=== PATIENT | female | born 1970 | race Caucasian/White ===

== ENCOUNTER → 2019-05-16 | Day surgery (SDC) | payer OTHER | END | disposition home or self-care (01) | LOC: SDC 13:00 | DX: M17.0 Bilateral primary osteoarthritis of knee (principal); F41.9 Anxiety disorder, unspecified; F32.9 Major depressive disorder, single episode, unspecified; E03.9 Hypothyroidism, unspecified; I10 Essential (primary) hypertension; Z88.1 Allergy status to other antibiotic agents; Z98.890 Other specified postprocedural states; Z82.49 Family history of ischemic heart disease and other diseases of the circulatory system; Z83.3 Family history of diabetes mellitus ==

== ENCOUNTER → 2020-04-15 | Outpatient (CLI) | payer OTHER, MEDICAID ==
[2020-04-15 15:37] LABS: BASO # 0.1 10*3/uL (0.0-0.1); BASO % 0.7 % (0.0-1.0); EOS # 0.2 10*3/uL (0.0-0.4); EOS % 2.1 % (1.0-4.0); HEMATOCRIT 38.8 % (37.0-47.0); LYMPH # 1.8 10*3/uL (1.3-4.4); LYMPH % 17.6 % (27.0-41.0); MEAN CELL VOLUME 88.6 fl (81.0-99.0); MEAN CORPUSCULAR HGB 25.8 pg (27.0-31.0); MEAN CORPUSCULAR HGB CONC 29.1 g/dl (33.0-37.0); MEAN PLATELET VOLUME 10.1 fl (9.6-12.3); MONO # 0.8 10*3/uL (0.1-1.0); MONO % 7.5 % (3.0-9.0); NEUT # 7.2 10*3/uL (2.3-7.9); NEUT % 71.7 % (47.0-73.0); PLATELET COUNT AUTOMATED 314 10*3/uL (130-400); RED BLOOD COUNT 4.38 10*6/uL (4.10-5.10); RED CELL DISTRI WIDTH 15.5 % (0-14.5)
[2020-04-15 16:16] LABS: ALKALINE PHOSPHATASE 58 U/L (45-117); BUN 25 mg/dl (7-24); CHLORIDE 105 mmol/L (98-107); CHOLESTEROL 136 mg/dL (<200); CREATININE 0.55 mg/dL (0.55-1.02); HDL CHOLESTEROL 44 mg/dl (40-60); LDL CHOLESTEROL 81 mg/dL (9-159); POTASSIUM 4.3 mmol/L (3.5-5.1); SGOT/AST 6 IU/L (3-35); SGPT/ALT 16 U/L (12-78); SODIUM 140 mmol/L (136-145); TOTAL PROTEIN 7.6 gm/dL (6.4-8.2); TRIGLYCERIDES 55 mg/dl (<150); VLDL CHOLESTEROL 11 mg/dL (6-40)
[2020-04-15 16:41] LABS: FREE T4 1.18 ng/dl (0.76-1.46)
[2020-04-15 16:45] LABS: BILIRUBIN NEGATIVE (NEGATIVE); BLOOD 3+ (NEGATIVE); CLARITY CLOUDY (CLEAR); COLOR YELLOW (YELLOW); GLUCOSE NEGATIVE (NEGATIVE); KETONE NEGATIVE (NEGATIVE); LEUKO ESTERASE TRACE (NEGATIVE); NITRITE NEGATIVE (NEGATIVE); SPECIFIC GRAVITY 1.025 (1.005-1.030)
[2020-04-15 16:49] LABS: BACTERIA 2+; MUCOUS 1+; RBC TNTC rbc/hpf (0-2); WBC 21-30 wbc/hpf (0-5)
== END | disposition home or self-care (01) ==
LOC: LAB 15:01
PROVIDERS: Family Medicine
DX: E03.9 Hypothyroidism, unspecified (principal); E66.01 Morbid (severe) obesity due to excess calories; E78.00 Pure hypercholesterolemia, unspecified; I10 Essential (primary) hypertension

== ENCOUNTER → 2020-05-20 | Outpatient (CLI) | payer OTHER, MEDICAID ==
[2020-05-20 17:06] LABS: BASO # 0.1 10*3/uL (0.0-0.1); BASO % 0.5 % (0.0-1.0); EOS # 0.2 10*3/uL (0.0-0.4); EOS % 1.7 % (1.0-4.0); HEMATOCRIT 35.8 % (37.0-47.0); LYMPH # 1.6 10*3/uL (1.3-4.4); LYMPH % 14.7 % (27.0-41.0); MEAN CELL VOLUME 88.4 fl (81.0-99.0); MEAN CORPUSCULAR HGB 25.4 pg (27.0-31.0); MEAN CORPUSCULAR HGB CONC 28.8 g/dl (33.0-37.0); MONO # 0.7 10*3/uL (0.1-1.0); MONO % 6.1 % (3.0-9.0); NEUT # 8.4 10*3/uL (2.3-7.9); NEUT % 76.5 % (47.0-73.0); PLATELET COUNT AUTOMATED 347 10*3/uL (130-400); RED BLOOD COUNT 4.05 10*6/uL (4.10-5.10); RED CELL DISTRI WIDTH 15.3 % (0-14.5); WHITE BLOOD COUNT 10.9 10*3/uL (4.8-10.8)
== END | disposition home or self-care (01) ==
LOC: LAB 16:30
PROVIDERS: ATTEND Family Medicine
DX: E03.9 Hypothyroidism, unspecified (principal); N92.0 Excessive and frequent menstruation with regular cycle

== ENCOUNTER → 2020-09-23 | Outpatient (CLI) | payer OTHER, MEDICAID | END | disposition home or self-care (01) | LOC: WOUNDCARE 00:32 → EDSTATUS 12:24 → WOUNDCARE 12:26 | PROVIDERS: ATTEND Nurse Practitioner | DX: L89.892 Pressure ulcer of other site, stage 2 (principal); L98.491 Non-pressure chronic ulcer of skin of other sites limited to breakdown of skin; E66.01 Morbid (severe) obesity due to excess calories; I10 Essential (primary) hypertension; E78.00 Pure hypercholesterolemia, unspecified; G47.30 Sleep apnea, unspecified; J96.90 Respiratory failure, unspecified, unspecified whether with hypoxia or hypercapnia ==

== ENCOUNTER 2023-09-07 20:46 | Emergency (ER) | payer MEDICAID ==
[~2023-09-07] VITALS: Ht 160 cm; Wt 196.9 kg
[2023-09-07 21:39] LABS: BASO # 0.1 10*3/uL (0.0-0.1); BASO % 0.4 % (0.0-1.0); EOS # 0.2 10*3/uL (0.0-0.4); HEMATOCRIT 37.5 % (37.0-47.0); LYMPH # 1.2 10*3/uL (1.3-4.4); LYMPH % 10.3 % (27.0-41.0); MEAN CELL VOLUME 88.7 fl (81.0-99.0); MEAN CORPUSCULAR HGB 25.5 pg (27.0-31.0); MEAN CORPUSCULAR HGB CONC 28.8 g/dl (33.0-37.0); MEAN PLATELET VOLUME 10.7 fl (9.6-12.3); PLATELET COUNT AUTOMATED 324 10*3/uL (130-400); RED BLOOD COUNT 4.23 10*6/uL (4.10-5.10); RED CELL DISTRI WIDTH 16.4 % (0-14.5); WHITE BLOOD COUNT 11.6 10*3/uL (4.8-10.8)
[2023-09-07 21:57] LABS: ALKALINE PHOSPHATASE 54 U/L (46-116); BUN 13 mg/dl (9-23); CHLORIDE 104 mmol/L (98-107); LIPASE 23 U/L (12-53); POTASSIUM 4.1 mmol/L (3.4-5.1); SGPT/ALT 13 U/L (5-49); TOTAL PROTEIN 6.9 gm/dL (6.0-8.0)
[2023-09-08] MEDS ORDERED: VIBRAMYCIN100 MG PO (01:11)
[2023-09-08] MEDS ORDERED: PREDNISONE20 M1 PO (01:11)
== END 2023-09-08 01:34 | disposition home or self-care (01) ==
LOC: ED 20:46
PROVIDERS: Internal Medicine
DX: J44.1 Chronic obstructive pulmonary disease with (acute) exacerbation (principal); Z88.1 Allergy status to other antibiotic agents; Z20.822 Contact with and (suspected) exposure to COVID-19

== ENCOUNTER 2023-10-16 02:53 | Emergency (ER) | payer MEDICAID ==
[~2023-10-16] VITALS: Ht 160 cm; Wt 156.5 kg
[~2023-10-16 02:53] MED LIST: PREDNISONE20 M1 PO; VIBRAMYCIN100 MG PO
[2023-10-16 04:01] LABS: BASO # 0.1 10*3/uL (0.0-0.1); BASO % 0.4 % (0.0-1.0); EOS # 0.1 10*3/uL (0.0-0.4); EOS % 0.9 % (1.0-4.0); HEMATOCRIT 40.3 % (37.0-47.0); LYMPH # 1.7 10*3/uL (1.3-4.4); LYMPH % 11.6 % (27.0-41.0); MEAN CELL VOLUME 85.4 fl (81.0-99.0); MEAN CORPUSCULAR HGB 24.6 pg (27.0-31.0); MEAN CORPUSCULAR HGB CONC 28.8 g/dl (33.0-37.0); MEAN PLATELET VOLUME 10.6 fl (9.6-12.3); MONO % 6.9 % (3.0-9.0); NEUT # 11.4 10*3/uL (2.3-7.9); NEUT % 79.2 % (47.0-73.0); PLATELET COUNT AUTOMATED 379 10*3/uL (130-400); RED BLOOD COUNT 4.72 10*6/uL (4.10-5.10); RED CELL DISTRI WIDTH 16.4 % (0-14.5); WHITE BLOOD COUNT 14.4 10*3/uL (4.8-10.8)
[2023-10-16 04:13] LABS: ACT PARTIAL THROMBO TIME 26.2 SECONDS (20.0-32.1)
[2023-10-16 04:25] LABS: ALKALINE PHOSPHATASE 50 U/L (46-116); BUN 21 mg/dl (9-23); CHLORIDE 104 mmol/L (98-107); LIPASE 24 U/L (12-53); POTASSIUM 3.8 mmol/L (3.4-5.1); SGPT/ALT 14 U/L (5-49); TOTAL PROTEIN 7.3 gm/dL (6.0-8.0)
== END 2023-10-16 07:53 | disposition short-term general hospital (02) ==
LOC: ED 02:53
PROVIDERS: Internal Medicine
DX: K56.609 Unspecified intestinal obstruction, unspecified as to partial versus complete obstruction (principal); K46.9 Unspecified abdominal hernia without obstruction or gangrene; R11.2 Nausea with vomiting, unspecified; Z88.1 Allergy status to other antibiotic agents; Z79.2 Long term (current) use of antibiotics; Z79.899 Other long term (current) drug therapy

== ENCOUNTER → 2024-12-05 | Outpatient (CLI) | payer MEDICAID ==
[~2024-12-05] MED LIST changes: +ACETAMINOPHEN325 M2 PO; +ASPIRIN ADULT L81 M2 PO; +B-121000 MCG PO; +BUPROPION HYDR150 M3 PO; +CLOPIDOGREL75 MG PO; +DICLOFENAC SODI50 GM T; +FLUVOXAMINE100 MG PO; +HYDROXYZINE HCL25 MG PO; +IRON325 M1 PO; +LEVOTHYROXINE112 MCG PO; +METFORMIN HYDR500 MG PO; +PEG3350238 GM PO; +ROSUVASTATIN CA10 MG PO; +ROSUVASTATIN CA20 MG PO; +TRAZODONE50 MG PO; +TRULICITY0.75 MG/0. SC
[2024-12-05 15:44] LABS: BASO # 0.1 10*3/uL (0.0-0.1); BASO % 0.8 % (0.0-1.0); EOS # 0.2 10*3/uL (0.0-0.4); EOS % 1.7 % (1.0-4.0); HEMATOCRIT 40.5 % (37.0-47.0); MEAN CELL VOLUME 88.8 fl (81.0-99.0); MEAN CORPUSCULAR HGB 25.9 pg (27.0-31.0); MEAN CORPUSCULAR HGB CONC 29.1 g/dl (33.0-37.0); MEAN PLATELET VOLUME 10.5 fl (9.6-12.3); MONO # 0.7 10*3/uL (0.1-1.0); MONO % 6.9 % (3.0-9.0); NEUT # 7.8 10*3/uL (2.3-7.9); NEUT % 75.5 % (47.0-73.0); PLATELET COUNT AUTOMATED 304 10*3/uL (130-400); RED BLOOD COUNT 4.56 10*6/uL (4.10-5.10); RED CELL DISTRI WIDTH 15.3 % (0-14.5); WHITE BLOOD COUNT 10.4 10*3/uL (4.8-10.8)
[2024-12-05 16:10] LABS: ALKALINE PHOSPHATASE 66 U/L (46-116); BUN 19 mg/dl (9-23); CHLORIDE 103 mmol/L (98-107); CHOLESTEROL 177 mg/dL (<200); LDL CHOLESTEROL 121 mg/dL (9-159); POTASSIUM 4.7 mmol/L (3.4-5.1); SGPT/ALT 13 U/L (5-49); TOTAL PROTEIN 7.2 gm/dL (6.0-8.0); TRIGLYCERIDES 76 mg/dl (<150)
== END | disposition home or self-care (01) ==
LOC: LAB 14:52
PROVIDERS: ATTEND Family Medicine
DX: I10 Essential (primary) hypertension (principal); E78.5 Hyperlipidemia, unspecified; E55.9 Vitamin D deficiency, unspecified

== ENCOUNTER 2025-05-30 18:05 | Inpatient (IN) | payer MEDICAID ==
[~2025-05-30] VITALS: Ht 160 cm; Wt 201.8 kg
[2025-05-30 09:20] VITALS: BP 182/96
[~2025-05-30 18:05] MED LIST changes: +JARDIANCE10 MG PO; +OMNICEF300 MG PO
[2025-05-30 18:57] VITALS: BP 159/101
[2025-05-30] MEDS ORDERED: SODIUM CHLORIDE 0.9% 1,000 ML IV ONE (19:50)
[2025-05-30 20:06] LABS: BASO # 0.1 10*3/uL (0.0-0.1); BASO % 0.4 % (0.0-1.0); EOS # 0.3 10*3/uL (0.0-0.4); EOS % 2.3 % (1.0-4.0); MEAN CELL VOLUME 90.3 fl (81.0-99.0); MEAN CORPUSCULAR HGB 26.4 pg (27.0-31.0); MEAN PLATELET VOLUME 10.8 fl (9.6-12.3); MONO # 1.1 10*3/uL (0.1-1.0); MONO % 7.7 % (3.0-9.0); NEUT # 10.2 10*3/uL (2.3-7.9); NEUT % 72.3 % (47.0-73.0); NUCLEATED RED BLOOD CELL 0.0 % (0.0-0.0); NUCLEATED RED BLOOD CELL 0.0 10*3/uL (0.0-0.0); PLATELET COUNT AUTOMATED 342 10*3/uL (130-400); RED CELL DISTRI WIDTH 16.1 % (0-14.5)
[2025-05-30 20:27] LABS: BUN 18 mg/dl (9-23)
[2025-05-30] MEDS ORDERED: Ondansetron Hydrochloride 4 MG/2 ML VIAL IV PRN (22:45)
[2025-05-30] MEDS ORDERED: BISACODYL 5 MG TAB PO PRN (22:45)
[2025-05-30] MEDS ORDERED: ACETAMINOPHEN 650 MG SUPP R PRN (22:45)
[2025-05-30] MEDS ORDERED: Acetaminophen/Hydrocodone 5 MG/325 MG TABLET PO PRN (22:45)
[2025-05-30] MEDS ORDERED: ACETAMINOPHEN 325 MG TAB PO PRN (22:45)
[2025-05-30] MEDS ORDERED: TEMAZEPAM 15 MG CAP PO PRN (22:45)
[2025-05-30] MEDS ORDERED: BISACODYL 10 MG SUPP R PRN (22:45)
[2025-05-30] MEDS ORDERED: HYDROXYZINE HCL25 MG PO (22:49)
[2025-05-30] MEDS ORDERED: DEXTROSE 50% 25 GM/50 ML VIAL IV PRN (23:05)
[2025-05-31] VITALS (7 sets, daily range): BP systolic 75–182; BP diastolic 35–96
[2025-05-31 06:11] LABS: BUN 17 mg/dl (9-23); SGPT/ALT 14 U/L (5-49)
[2025-05-31 06:28] LABS: BASO # 0.1 10*3/uL (0.0-0.1); BASO % 0.6 % (0.0-1.0); EOS # 0.3 10*3/uL (0.0-0.4); EOS % 2.9 % (1.0-4.0); MEAN CELL VOLUME 90.9 fl (81.0-99.0); MEAN CORPUSCULAR HGB 26.4 pg (27.0-31.0); MEAN PLATELET VOLUME 11.6 fl (9.6-12.3); MONO # 0.6 10*3/uL (0.1-1.0); MONO % 7.3 % (3.0-9.0); NEUT # 6.2 10*3/uL (2.3-7.9); NEUT % 70.9 % (47.0-73.0); NUCLEATED RED BLOOD CELL 0.0 % (0.0-0.0); NUCLEATED RED BLOOD CELL 0.0 10*3/uL (0.0-0.0); PLATELET COUNT AUTOMATED 271 10*3/uL (130-400); RED CELL DISTRI WIDTH 16.2 % (0-14.5)
[2025-05-31 06:29] LABS: ACT PARTIAL THROMBO TIME 27.2 SECONDS (20.0-32.1)
[2025-05-31] MEDS ORDERED: INSULIN LISPRO 1 UNIT/0.01 ML SQ SCH (07:30)
[2025-05-31] MEDS ORDERED: TRULICITY1.5 MG/0.5 SC (08:16)
[2025-05-31] MEDS ORDERED: ASPIRIN ENTERIC COATED 81 MG TAB PO SCH (10:00)
[2025-05-31] MEDS ORDERED: Menthol/Zinc Oxide 4 GM THIN T SCH (22:00)
[2025-05-31] MEDS ORDERED: ATORVASTATIN CALCIUM 20 MG TAB PO SCH (22:00)
[2025-05-31] MEDS ORDERED: NYSTATIN 15 GM BOT T SCH (22:00)
[2025-06-01] VITALS: BP 132/68
[2025-06-01 05:24] LABS: BUN 15 mg/dl (9-23)
[2025-06-01 06:30] LABS: BASO # 0.0 10*3/uL (0.0-0.1); BASO % 0.5 % (0.0-1.0); EOS # 0.3 10*3/uL (0.0-0.4); EOS % 3.3 % (1.0-4.0); MEAN CELL VOLUME 91.2 fl (81.0-99.0); MEAN CORPUSCULAR HGB 26.2 pg (27.0-31.0); MEAN PLATELET VOLUME 11.2 fl (9.6-12.3); MONO # 0.7 10*3/uL (0.1-1.0); MONO % 8.3 % (3.0-9.0); NEUT # 5.2 10*3/uL (2.3-7.9); NEUT % 65.9 % (47.0-73.0); NUCLEATED RED BLOOD CELL 0.0 % (0.0-0.0); NUCLEATED RED BLOOD CELL 0.0 10*3/uL (0.0-0.0); PLATELET COUNT AUTOMATED 267 10*3/uL (130-400); RED CELL DISTRI WIDTH 16.0 % (0-14.5)
[2025-06-01 08:00] VITALS: BP 146/74
[2025-06-01 12:00] VITALS: BP 112/51
[2025-06-01] MEDS ORDERED: Phenazopyridine Hydrochlorid2 100 MG TAB PO SCH (14:00)
[2025-06-01 16:00] VITALS: BP 145/53
[2025-06-01 20:00] VITALS: BP 152/84
[2025-06-02] VITALS: BP 151/73
[2025-06-02 05:15] LABS: BUN 13 mg/dl (9-23)
[2025-06-02 06:36] LABS: BASO # 0.1 10*3/uL (0.0-0.1); BASO % 0.6 % (0.0-1.0); EOS # 0.3 10*3/uL (0.0-0.4); EOS % 2.9 % (1.0-4.0); MEAN CELL VOLUME 91.0 fl (81.0-99.0); MEAN CORPUSCULAR HGB 26.3 pg (27.0-31.0); MEAN PLATELET VOLUME 11.3 fl (9.6-12.3); MONO # 0.8 10*3/uL (0.1-1.0); MONO % 9.1 % (3.0-9.0); NEUT # 6.0 10*3/uL (2.3-7.9); NEUT % 67.7 % (47.0-73.0); NUCLEATED RED BLOOD CELL 0.0 % (0.0-0.0); NUCLEATED RED BLOOD CELL 0.0 10*3/uL (0.0-0.0); PLATELET COUNT AUTOMATED 257 10*3/uL (130-400); RED CELL DISTRI WIDTH 15.8 % (0-14.5)
[2025-06-02 08:00] VITALS: BP 139/70
[2025-06-02] MEDS ORDERED: PHENAZOPYRIDIN100 M1 PO (10:33)
[2025-06-02] MEDS ORDERED: CEPHALEXIN500 M1 PO (10:33)
== END 2025-06-02 11:45 | disposition home or self-care (01) | DRG 463 ==
LOC: ED 18:05 → ICCU 22:02 → EDHOLD 22:02 → ICCU 05-31 07:29
PROVIDERS: Internal Medicine; Student in an Organized Health Care Education/Training Program; ADMIT Internal Medicine; ATTEND Internal Medicine
DX: N39.0 Urinary tract infection, site not specified (principal); J96.11 Chronic respiratory failure with hypoxia; E66.01 Morbid (severe) obesity due to excess calories; F32.9 Major depressive disorder, single episode, unspecified; E03.9 Hypothyroidism, unspecified; E78.5 Hyperlipidemia, unspecified; I10 Essential (primary) hypertension; E11.9 Type 2 diabetes mellitus without complications; F41.1 Generalized anxiety disorder; Z99.81 Dependence on supplemental oxygen; Z86.73 Personal history of transient ischemic attack (TIA), and cerebral infarction without residual deficits; Z82.49 Family history of ischemic heart disease and other diseases of the circulatory system; Z82.3 Family history of stroke; Z88.1 Allergy status to other antibiotic agents; Z88.8 Allergy status to other drugs, medicaments and biological substances; Z79.82 Long term (current) use of aspirin; Z79.899 Other long term (current) drug therapy; Z68.45 Body mass index [BMI] 70 or greater, adult

== ENCOUNTER 2025-08-24 18:21 | Inpatient (IN) | payer MEDICAID ==
[~2025-08-24] VITALS: Ht 160 cm; Wt 198.4 kg
[~2025-08-24 18:21] MED LIST changes: +CEPHALEXIN500 M1 PO; +PHENAZOPYRIDIN100 M1 PO; +TRULICITY1.5 MG/0.5 SC
[2025-08-24 18:30] VITALS: BP 183/84
[2025-08-24 18:54] LABS: BILIRUBIN Negative (Negative); BLOOD 3+ (Negative); CLARITY Turbid (Clear); COLOR Yellow (Yellow); KETONE Negative (Negative); LEUKO ESTERASE 2+ (Negative); NITRITE Negative (Negative); PH 6.0 (4.5-8.0); SPECIFIC GRAVITY 1.025 (1.001-1.030); UROBILINOGEN 1.0 E.U./dl (0.0-1.0)
[2025-08-24 19:04] LABS: BASO # 0.1 10*3/uL (0.0-0.1); BASO % 0.7 % (0.0-1.0); EOS # 0.3 10*3/uL (0.0-0.4); EOS % 2.6 % (1.0-4.0); MEAN CELL VOLUME 91.0 fl (81.0-99.0); MEAN CORPUSCULAR HGB 25.8 pg (27.0-31.0); MEAN PLATELET VOLUME 10.5 fl (9.6-12.3); MONO # 0.6 10*3/uL (0.1-1.0); MONO % 5.7 % (3.0-9.0); NEUT # 8.7 10*3/uL (2.3-7.9); NEUT % 77.0 % (47.0-73.0); NUCLEATED RED BLOOD CELL 0.0 % (0.0-0.0); NUCLEATED RED BLOOD CELL 0.0 10*3/uL (0.0-0.0); PLATELET COUNT AUTOMATED 279 10*3/uL (130-400); RED CELL DISTRI WIDTH 15.2 % (0-14.5)
[2025-08-24 19:05] LABS: BACTERIA 2+; RBC 21-30 rbc/hpf (0-2); WBC TNTC wbc/hpf (0-5)
[2025-08-24 19:23] LABS: BUN 20 mg/dl (9-23)
[2025-08-24] MEDS ORDERED: ACETAMINOPHEN 325 MG TAB PO PRN (20:05)
[2025-08-24] MEDS ORDERED: LISINOPRIL2.5 MG PO (20:43)
[2025-08-24 22:42] VITALS: BP 124/70
[2025-08-25 00:30] VITALS: BP 167/83
[2025-08-25 06:11] LABS: BASO # 0.1 10*3/uL (0.0-0.1); BASO % 0.6 % (0.0-1.0); EOS # 0.3 10*3/uL (0.0-0.4); EOS % 2.3 % (1.0-4.0); MEAN CELL VOLUME 91.2 fl (81.0-99.0); MEAN CORPUSCULAR HGB 25.9 pg (27.0-31.0); MEAN PLATELET VOLUME 11.1 fl (9.6-12.3); MONO # 1.1 10*3/uL (0.1-1.0); MONO % 8.7 % (3.0-9.0); NEUT # 9.2 10*3/uL (2.3-7.9); NEUT % 75.4 % (47.0-73.0); NUCLEATED RED BLOOD CELL 0.0 % (0.0-0.0); NUCLEATED RED BLOOD CELL 0.0 10*3/uL (0.0-0.0); PLATELET COUNT AUTOMATED 298 10*3/uL (130-400); RED CELL DISTRI WIDTH 15.3 % (0-14.5)
[2025-08-25 06:12] LABS: BUN 20 mg/dl (9-23); SGPT/ALT 9 U/L (5-49)
[2025-08-25 08:00] VITALS: BP 148/66
[2025-08-25] MEDS ORDERED: LISINOPRIL 2.5 MG TAB PO SCH (10:00)
[2025-08-25] MEDS ORDERED: NYSTATIN 15 GM BOT T SCH (10:00)
[2025-08-25] MEDS ORDERED: CYANOCOBALAMIN 500 MCG TAB PO SCH (10:00)
[2025-08-25] MEDS ORDERED: ASPIRIN ENTERIC COATED 81 MG TAB PO SCH (10:00)
[2025-08-25 12:00] VITALS: BP 171/75
[2025-08-25 16:00] VITALS: BP 166/83
[2025-08-25 20:00] VITALS: BP 165/85
[2025-08-25] MEDS ORDERED: ATORVASTATIN CALCIUM 40 MG TABLET PO SCH (22:00)
[2025-08-26] VITALS: BP 150/65
[2025-08-26 06:09] LABS: BASO # 0.1 10*3/uL (0.0-0.1); BASO % 0.8 % (0.0-1.0); EOS # 0.2 10*3/uL (0.0-0.4); EOS % 3.7 % (1.0-4.0); MEAN CELL VOLUME 90.9 fl (81.0-99.0); MEAN CORPUSCULAR HGB 26.1 pg (27.0-31.0); MEAN PLATELET VOLUME 11.4 fl (9.6-12.3); MONO # 0.6 10*3/uL (0.1-1.0); MONO % 9.5 % (3.0-9.0); NEUT # 3.9 10*3/uL (2.3-7.9); NEUT % 58.9 % (47.0-73.0); NUCLEATED RED BLOOD CELL 0.0 % (0.0-0.0); NUCLEATED RED BLOOD CELL 0.0 10*3/uL (0.0-0.0); PLATELET COUNT AUTOMATED 236 10*3/uL (130-400); RED CELL DISTRI WIDTH 15.2 % (0-14.5)
[2025-08-26 06:27] LABS: BUN 15 mg/dl (9-23)
[2025-08-26 08:00] VITALS: BP 154/78
[2025-08-26 12:00] VITALS: BP 152/81
[2025-08-26 16:00] VITALS: BP 166/86
[2025-08-26 20:00] VITALS: BP 180/90
[2025-08-26 21:00] VITALS: BP 166/72
[2025-08-27] VITALS: BP 165/76
[2025-08-27 06:16] LABS: BUN 17 mg/dl (9-23)
[2025-08-27 06:31] LABS: BASO # 0.0 10*3/uL (0.0-0.1); BASO % 0.5 % (0.0-1.0); EOS # 0.3 10*3/uL (0.0-0.4); EOS % 3.3 % (1.0-4.0); MEAN CELL VOLUME 90.1 fl (81.0-99.0); MEAN CORPUSCULAR HGB 26.3 pg (27.0-31.0); MEAN PLATELET VOLUME 11.3 fl (9.6-12.3); MONO # 0.6 10*3/uL (0.1-1.0); MONO % 8.3 % (3.0-9.0); NEUT # 4.9 10*3/uL (2.3-7.9); NEUT % 64.0 % (47.0-73.0); NUCLEATED RED BLOOD CELL 0.0 % (0.0-0.0); NUCLEATED RED BLOOD CELL 0.0 10*3/uL (0.0-0.0); PLATELET COUNT AUTOMATED 242 10*3/uL (130-400); RED CELL DISTRI WIDTH 15.2 % (0-14.5)
[2025-08-27 08:00] VITALS: BP 162/76
[2025-08-27] MEDS ORDERED: FERROUS SULFATE 325 MG TAB PO SCH (10:00)
[2025-08-27] MEDS ORDERED: Menthol/Zinc Oxide 4 GM THIN T SCH ×2 (12:00→22:00)
[2025-08-27] MEDS ORDERED: OMNICEF300 MG PO (12:21)
== END 2025-08-27 13:35 | disposition home or self-care (01) | DRG 463 ==
LOC: ED 18:21 → EDHOLD 19:47 → 5E 19:47
PROVIDERS: Nurse Practitioner Family; Student in an Organized Health Care Education/Training Program; ADMIT Family Medicine; ATTEND Family Medicine
DX: N30.01 Acute cystitis with hematuria (principal); E66.01 Morbid (severe) obesity due to excess calories; D64.9 Anemia, unspecified; E44.0 Moderate protein-calorie malnutrition; F32.9 Major depressive disorder, single episode, unspecified; F41.1 Generalized anxiety disorder; E78.5 Hyperlipidemia, unspecified; D72.829 Elevated white blood cell count, unspecified; E11.65 Type 2 diabetes mellitus with hyperglycemia; E03.9 Hypothyroidism, unspecified; I10 Essential (primary) hypertension; Z88.0 Allergy status to penicillin; Z88.8 Allergy status to other drugs, medicaments and biological substances; Z83.3 Family history of diabetes mellitus; Z99.81 Dependence on supplemental oxygen; Z82.49 Family history of ischemic heart disease and other diseases of the circulatory system; Z82.3 Family history of stroke; Z86.73 Personal history of transient ischemic attack (TIA), and cerebral infarction without residual deficits; Z79.4 Long term (current) use of insulin; Z68.45 Body mass index [BMI] 70 or greater, adult